=== PATIENT | male | born 1960 | race Caucasian/White ===

== ENCOUNTER 2016-10-12 11:23 | Emergency (ER) | payer SELFPAY ==
[2016-10-12 11:29] VITALS: BP 119/72
--- NOTE | 2016-10-12 12:26 | UC ---
homar Pizano Timothy, scribed for Amelia Wise MD on 10/12/16 at 1209 . Respiratory Complaint HPI - HPI Summary HPI Summary: Des Nava is a 55 yo male presenting to [facility] with non-productive cough for the past two weeks, concerned that CPAP may have caused his Sx. He states this is the second time in 6 months that he has had this cough. Pt is worried he has not been cleaning his CPAP correctly. He states he was feverish last week but none since. None productive cough. Pt denies EGAN, sinus congestion, ear pain, pnd. Pt states was treated for sarcoid in his lung and right eye several years ago. STates at this time was treated with steroids. Pt is monitored at [facility] for this disease process. He denies any traveling, infectious exposure, rhinorrhea. pt also with recent wound left lower abd - pt ? tick or insect bite. Been present x 2 weeks. His MHx includes diplopia, heart murmur, bicuspid valve disease, vertebral arterial disease, cerebral cyst, sarcoidosis, cholecystectomy, ADHD, bipolar disorder, tobacco use. - History of Current Complaint Chief Complaint: UCRespiratory Stated Complaint: COUGH Time Seen by Provider: 10/12/16 12:10 Hx Obtained From: Patient Onset/Duration: Gradual Onset, Lasting Weeks, Still Present Timing: Constant Severity Initially: Moderate Severity Currently: Moderate Character: Cough: Nonproductive Associated Signs And Symptoms: Positive: Fever. Negative: Nasal Congestion, Sinus Discomfort - Allergies/Home Medications Allergies/Adverse Reactions: Allergies Allergy/AdvReac Type Severity Reaction Status Date / Time No Known Allergies Allergy Verified 10/12/16 11:29 PMH/Surg Hx/FS Hx/Imm Hx - Additional Past Medical History Additional PMH: sarcoidosis Previously Healthy: Yes Cardiovascular History: Other Other Cardiovascular History: diplopia, heart murmur, bicuspid valve disease, vertebral arterial disease Neurological History: Other Other Neurological History: cerebral cyst Psychological History: Bipolar Disorder, Other Other Psychological History: ADHD - Surgical History Surgical History: Yes Surgery Procedure, Year, and Place: 1989- cyst removed parotid gland. 2004- vasectomy. 2004- cholecystectomy. wisdom teeth removal, date unknown - Family History Known Family History: Positive: Cardiac Disease, Diabetes Negative: Hypertension, Respiratory Disease - Social History Occupation: Employed Full-time - real estate agency principal Alcohol Use: None Substance Use Type: None Smoking Status (MU): Former Smoker Length of Time of Smoking/Using Tobacco: 13 years When Did the Patient Quit Smoking/Using Tobacco: 28 years ago Household Exposure Type: Cigarettes - Immunization History Most Recent Influenza Vaccination: 2014/2015 Review of Systems Constitutional: Fever Skin: Other - wound to left lower abd - ?insect bite Eyes: Negative ENT: Negative Respiratory: Cough Cardiovascular: Negative Gastrointestinal: Negative Genitourinary: Negative Motor: Negative Neurovascular: Negative Musculoskeletal: Negative Neurological: Negative Psychological: Negative All Other Systems Reviewed And Are Negative: Yes Physical Exam Triage Information Reviewed: Yes Vital Signs: Initial Vital Signs Temp 98.8 F 10/12/16 11:25 Pulse 57 10/12/16 11:25 Resp 16 10/12/16 11:25 BP 119/72 10/12/16 11:25 Pulse Ox 97 10/12/16 11:25 Vital Signs Reviewed: Yes Eye Exam: Normal Eyes: Positive: Conjunctiva Clear, Conjunctiva Inflamed ENT Exam: Normal ENT: Positive: Normal ENT inspection, Hearing grossly normal, Nasal drainage, TMs normal Neck exam: Normal Neck: Positive: Supple, Nontender, No Lymphadenopathy Respiratory Exam: Normal Respiratory: Positive: Chest non-tender, No respiratory distress, No accessory muscle use, Other: - few, scattered wheeze mild, intermittent cough Cardiovascular Exam: Normal Cardiovascular: Positive: RRR, No Murmur, Pulses Normal Abdominal Exam: Normal Abdomen Description: Positive: Nontender, No Organomegaly, Soft Bowel Sounds: Positive: Present Musculoskeletal Exam: Normal Neurological Exam: Normal Neurological: Positive: Alert Psychological Exam: Normal Psychological: Positive: Normal Response To Family Skin: Positive: Other - left upper suprapubic area - pt with small scabbed area - appears as inflammed follicle. No drainage, non tender. No fluctance UC Diagnostic Evaluation - Laboratory O2 Sat by Pulse Oximetry: 97 Re-Evaluation - Re-Evaluation First Eval Re-Evaluation Time: 12:36 Change: Unchanged Comment: Pt states he declines CXR due to lack of insurance. Pt was advised of the risks of the decision to forego CXR. Respiratory Course/Dx - Course Course Of Treatment: Des Nava is a 55 yo male presenting to [facility] with nonproductive cough for the past few weeks. Pt concerned related to cpap. Pt denies sick contact. Pt reports has sarcoidosis. REcommend CXR -similar sx in 6 months, h/o sarcoid- pt does not have insurance and declines CXR. Will give abx. pt has MDI. f./u with pcp. secretion hygeine discussed. PT comfortable and in agreement with plan - Differential Dx/Diagnosis Provider Diagnoses: cough Discharge - Discharge Plan Condition: Stable Disposition: HOME Prescriptions: Albuterol HFA INHALER* [Ventolin HFA Inhaler*] 1 puff INH Q4H PRN #1 mdi PRN Reason: Wheezing Azithromycin TAB* [Zithromax TAB (Z-VENUS) 250 mg #6 tabs] 2 tab PO .TODAY, THEN 1 DAILY #1 venus Patient Education Materials: Acute Cough (ED) Referrals: Arti Phipps MD [Primary Care Provider] - 2 Days Additional Instructions: Stay well hydrated. Drink plenty of non-alcoholic, non-caffinated beverages Take antibiotics as prescribed until gone After you have been on antibiotics for 2 days, change your toothbrush and change your pillowcase Call your doctor to schedule a follow-up appointment. call your doctor or return with questions or concerns Please follow up with your primary care physician reagrding your visit to urgent care today. Return to urgent care or the emergency department with any new symptoms or questions or concerns. The documentation as recorded by the homar ewing Timothy accurately reflects the service I personally performed and the decisions made by me, Amelia Wise MD.
== END 2016-10-12 12:55 | disposition home or self-care (01) ==
LOC: UCEAST 11:23
DX: R05 Cough (principal); D86.9 Sarcoidosis, unspecified; Z87.891 Personal history of nicotine dependence
CPT/HCPCS: 99212; G0463

== ENCOUNTER 2017-09-21 17:14 | Emergency (ER) | payer BC ==
[2017-09-21 18:01] VITALS: BP 136/81
--- NOTE | 2017-09-21 19:13 | UC ---
Back Pain HPI - HPI Summary HPI Summary: 56 y/o male presents to the urgent care accompany c/o RT side posterior rib pain and lower back pain s/p slipping and falling down 4 steps and landing on his Rt side of back around 1630pm today. Pt reports pain is 7/10, sharp and exacerbated w/ movement and deep breathing. He has a bruise in his RT posterior back. Pt denies saddle anesthesia, urinary or fecal incontinence, numbness or tingling sensation over the lower extremities. Pt states Hx of T7, T8 and T9 fracture in 1994 s/p fall. Pt has not taking anything to alleviate symptoms. Pt denies SOB, chest pain, abdominal pain, urinary symptoms, N/V/D. - History of Current Complaint Chief Complaint: UCBackPain Stated Complaint: BACK INJURY Time Seen by Provider: 09/21/17 19:11 Hx Obtained From: Patient Onset/Duration: Sudden Onset, Lasting Hours - 4hrs AGO Timing: Constant Severity Initially: Moderate Severity Currently: Moderate Pain Intensity: 8 Pain Scale Used: 0-10 Numeric Back Pain: Is Discrete @ - Rt lateral side of posterior mid back and lower back pain back Character: Sharp Aggravating Factor(s): Movement, Lifting, Bending, Other - deep breathing Alleviating Factor(s): Rest, Cold Associated Signs And Symptoms: Positive: Swelling, Redness, Bruising. Negative : Fever, Weakness, Numbness, Tingling, Abdominal Pain, Flank Pain, Bladder Incontinence, Bowel Incontinence, Weight Loss, Pain with Weight Bearing - Risk Factors AAA Risk Factors: Negative TAD Risk Factors: Negative Cauda Equina Risk Factors: Negative Epidural Abscess Risk Factors: Negative - Allergies/Home Medications Allergies/Adverse Reactions: Allergies Allergy/AdvReac Type Severity Reaction Status Date / Time No Known Allergies Allergy Verified 09/21/17 18:01 PMH/Surg Hx/FS Hx/Imm Hx Previously Healthy: Yes Endocrine History: Diabetes - Pre-DM, Dyslipidemia Psychological History: Depression, Bipolar Disorder - Surgical History Surgical History: Yes Surgery Procedure, Year, and Place: 1989- cyst removed parotid gland. 2004- vasectomy. 2004- cholecystectomy. wisdom teeth removal, date unknown - Family History Known Family History: Positive: Cardiac Disease, Hypertension, Diabetes Negative: Respiratory Disease - Social History Occupation: Employed Full-time Lives: With Family Alcohol Use: None Substance Use Type: None Smoking Status (MU): Former Smoker Length of Time of Smoking/Using Tobacco: 13 years When Did the Patient Quit Smoking/Using Tobacco: 28 years ago Household Exposure Type: Cigarettes - Immunization History Most Recent Influenza Vaccination: 2014/2015 Review of Systems Constitutional: Negative Skin: Bruising - RT posterio side of mid back w/ a big bruise s/p fall Eyes: Negative ENT: Negative Respiratory: Negative Cardiovascular: Negative Gastrointestinal: Negative Genitourinary: Negative Motor: Negative Neurovascular: Negative Musculoskeletal: Decreased ROM - lower back, Other: - lower back pain s/p fall Neurological: Negative Psychological: Negative Is Patient Immunocompromised?: No All Other Systems Reviewed And Are Negative: Yes Physical Exam - Summary Physical Exam Summary: Vital Signs Reviewed: Yes Appearance: Well-Appearing, Well-Nourished, obese male sitting in the examining table w/o any apparent distress. Eyes: Positive: Conjunctiva Clear - PERRLA, EOMI. ENT: Positive: Normal ENT inspection, Hearing grossly normal, Pharynx normal, TMs normal, Uvula midline Neck: Positive: Supple, Nontender, No Lymphadenopathy Respiratory: Positive: Chest non-tender, Lungs clear, Normal breath sounds, No respiratory distress Cardiovascular: Positive: RRR, No Murmur, Pulses Normal, Brisk Capillary Refill Abdomen Description: Positive: Nontender, No Organomegaly, Soft. Negative: CVA Tenderness (R), CVA Tenderness (L) Bowel Sounds: Positive: Present Musculoskeletal: Positive: Strength Intact, BACK: Patient walked into the urgent care room with symmetric ambulation, No signs of limping, antalgic, able to bear weight. Posterior RT side of mid back w/ a hematoma about 18cm x 8cm in size, mild tenderness to palpation and mild swelling. No masses palpated. Point tenderness at the level of postrior Rt side ribs 9-12, No CVAT, no flank ecchymosis . No sacroiliac notch tenderness, Point tenderness at L5-S1 on palpation No saddle anesthesia.ROM: limited due to pain, Straight Leg Raise: unable to perform due to pain. Patellar reflexes: brisk, symmetric Muscle strength lower extremities. Dorsiflexion/ plantar flexion of ankles. Heel/ toe walk. Lower extremities: Femoral, popliteal, posterior tibial, and dorsalis pedis pulses WNL. Pt refuse rectal exam Neurological: Positive: Alert, Muscle Tone Normal Psychological Exam: Normal Skin Exam: Normal Triage Information Reviewed: Yes Vital Signs: Initial Vital Signs Temp 98.0 F 09/21/17 17:58 Pulse 70 09/21/17 17:58 Resp 18 09/21/17 17:58 BP 136/81 09/21/17 17:58 Pulse Ox 98 09/21/17 17:58 Back Pain Course/Dx - Course Course Of Treatment: 56 y/o male presents to the urgent care accompany c/o RT side posterior rib pain and lower back pain s/p slipping and falling down 4 steps and landing on his Rt side of back around 1630pm today. Pt reports pain is 7/10, sharp and exacerbated w/ movement and deep breathing. He has a bruise in his RT posterior back. Pt denies saddle anesthesia, urinary or fecal incontinence, numbness or tingling sensation over the lower extremities. Pt states Hx of T7, T8 and T9 fracture in 1994 s/p fall. Pt has not taking anything to alleviate symptoms. Pt denies SOB, chest pain, abdominal pain, urinary symptoms, N/V/D. Hx obtained. - Differential Dx/Diagnosis Differential Diagnosis/HQI/PQRI: Fracture, Renal Colic, Strain, Sprain Provider Diagnoses: 1- RT side posterior rib pain s/p fall. 2-Acute lower back pain s/p fall Discharge - Discharge Plan Condition: Stable Disposition: HOME Prescriptions: Ibuprofen TAB* [Motrin TAB* 800 MG] 800 mg PO Q6H PRN #30 tab PRN Reason: Pain Patient Education Materials: How to Use an Incentive Spirometer (ED), Degenerative Disc Disease (ED), Hematoma (ED), Atelectasis (ED) Referrals: Arti Phipps MD [Primary Care Provider] - 2 Days Additional Instructions: 1- Please take Ibuprofen PO as directed after meals for pain. Apply cold compresses over hematoma to alleviate pain and swelling 2- Use the incentive Spirometry to improve lung function and alleviate atelectasis. 3- Wear a back support. Avoid strenuous exercise of heavy lifting. 4- Please follow up with your PCP in 2-3 days if not improvement of symptoms, for further management. 5- If you develop severe SOB and severe pain please go immediately ti the ER for further management - Billing Disposition and Condition Condition: STABLE Disposition: Home
[2017-09-21] MEDS ORDERED: Ibuprofen TAB* 400 MG PO ONE (19:26)
--- NOTE | 2017-09-21 20:01 | RAD ---
INDICATION: Fall, low back pain. COMPARISON: There are no prior studies available for comparison. TECHNIQUE: 5 views of the lumbar spine were obtained including lateral, oblique, AP and a coned-down lateral view of the lumbar sacral junction. FINDINGS: The vertebra are in normal alignment. There is suggestion of spondylolysis at the L5 level seen on the lateral image. No other fracture is seen. There is mild degenerative disc disease at the L4-L5 level. IMPRESSION: 1. MILD DEGENERATIVE DISC DISEASE AT THE L4-L5 LEVEL. 2. POSSIBLE SPONDYLOLYSIS AT THE L5 LEVEL.
--- NOTE | 2017-09-21 20:03 | RAD ---
INDICATION: Right rib injury. COMPARISON: Comparison is made with a prior chest x-ray study from December 09, 2006. TECHNIQUE: 4 views of the right ribs and dual-energy PA views of the chest were obtained. FINDINGS: No fracture or significant focal osseous abnormality is seen. The heart is within normal limits in size. The lungs are underinflated. There are linear densities at both lung bases most consistent with atelectasis. The lungs are otherwise clear. No pleural effusion or pneumothorax is seen. IMPRESSION: NO EVIDENCE FOR FRACTURE.
== END 2017-09-21 20:52 | disposition home or self-care (01) ==
LOC: UCEAST 17:14
DX: R07.81 Pleurodynia (principal); M54.2 Cervicalgia; Z87.891 Personal history of nicotine dependence; F31.9 Bipolar disorder, unspecified; W01.0XXA Fall on same level from slipping, tripping and stumbling without subsequent striking against object, initial encounter
CPT/HCPCS: 72110; 99212; A9270-GY; G0463

== ENCOUNTER 2017-11-05 15:52 | Emergency (ER) | payer BC ==
--- NOTE | 2017-11-05 15:56 | UC ---
Ear Complaint HPI - HPI Summary HPI Summary: 56 yo female presents with left ear pain for the last 5 days. Denies fever, chills, sinus symptoms, headache, dizziness, cough, sore throat. - History of Current Complaint Stated Complaint: L EAR ACHE Time Seen by Provider: 11/05/17 15:55 Hx Obtained From: Patient Onset/Duration: Gradual Onset Severity Initially: Mild Severity Currently: Mild Pain Intensity: 2 Pain Scale Used: 0-10 Numeric - Allergies/Home Medications Allergies/Adverse Reactions: Allergies Allergy/AdvReac Type Severity Reaction Status Date / Time No Known Allergies Allergy Verified 11/05/17 16:00 PMH/Surg Hx/FS Hx/Imm Hx - Additional Past Medical History Additional PMH: ADHD Psychological History: Bipolar Disorder - Surgical History Surgical History: Yes Surgery Procedure, Year, and Place: 1989- cyst removed parotid gland. 2004- vasectomy. 2004- cholecystectomy. wisdom teeth removal, date unknown - Family History Known Family History: Positive: None, Cardiac Disease, Hypertension, Diabetes Negative: Respiratory Disease - Social History Occupation: Employed Full-time Lives: With Family Alcohol Use: None Substance Use Type: None Smoking Status (MU): Former Smoker Length of Time of Smoking/Using Tobacco: 13 years When Did the Patient Quit Smoking/Using Tobacco: 28 years ago Household Exposure Type: Cigarettes - Immunization History Most Recent Influenza Vaccination: 2014/2015 Review of Systems Constitutional: Negative Skin: Negative Eyes: Negative ENT: Ear Ache Respiratory: Negative Cardiovascular: Negative Gastrointestinal: Negative Neurovascular: Negative Neurological: Negative Psychological: Negative All Other Systems Reviewed And Are Negative: Yes Physical Exam - Summary Physical Exam Summary: GENERAL: NAD. WDWN. No pain distress. SKIN: No rashes, sores, lesions, or open wounds. HEENT: Head: AT/NC Eyes: EOM intact. Conjunctiva clear without inflammation or discharge. Ears: Hearing grossly normal. LEFT EAR: TM with mild erythema and bulging. No canal edema or drainage. Nose: Nasal mucosa pink and moist. NTTP maxillary and frontal sinus. Throat: Posterior oropharynx without exudates, erythema, or tonsillar enlargement. Uvula midline. NECK: Supple. Nontender. No lymphadenopathy. CHEST: CTAB. No r/r/w. No accessory muscle use. Breathing comfortably and in no distress. CV: RRR. Without m/r/g. Pulses intact. Brisk cap refill. NEURO: Alert. CN II-XII grossly intact. PSYCH: Age appropriate behavior. Triage Information Reviewed: Yes Vital Signs: Vital Signs: Temp Pulse Resp BP Pulse Ox 97.6 F 57 16 115/57 96 11/05/17 15:56 11/05/17 15:56 11/05/17 15:56 11/05/17 15:56 11/05/17 15:56 Vital Signs Reviewed: Yes Ear Complaint Course/Dx - Course Course Of Treatment: left otitis media - Differential Dx/Diagnosis Provider Diagnoses: Left otitis media Discharge - Sign-Out/Discharge Documenting (check all that apply): Patient Departure - Discharge Plan Condition: Stable Disposition: HOME Prescriptions: Amoxicillin PO (*) [Amoxicillin 500 MG CAP*] 500 mg PO Q12H #14 cap Patient Education Materials: Ear Infection (ED) Referrals: Arti Phipps MD [Primary Care Provider] - Additional Instructions: If you develop a fever, shortness of breath, chest pain, new or worsening symptoms - please call your PCP or go to the ED. - Billing Disposition and Condition Condition: STABLE Disposition: Home
[2017-11-05 16:00] VITALS: BP 115/57
== END 2017-11-05 16:11 | disposition home or self-care (01) ==
LOC: UCEAST 15:52
DX: H66.92 Otitis media, unspecified, left ear (principal); Z87.891 Personal history of nicotine dependence
CPT/HCPCS: 99212; G0463

== ENCOUNTER 2017-11-15 09:19 | Emergency (ER) | payer BC ==
[2017-11-15 09:27] VITALS: BP 95/57
--- NOTE | 2017-11-15 09:55 | UC ---
Ear Complaint HPI - HPI Summary HPI Summary: 56 yo male presents with continued left ear pain. I saw the pt on 11/05/17 and he was diagnosed with otitis media on the left. He said that he finished the amoxicillin and felt good for a day or two, but his ear pain returned. He has not been taking anything OTC such as flonase or antihistamines. Denies fever, chills, sore throat, sinus symptoms, or cough. - History of Current Complaint Chief Complaint: UCEar Stated Complaint: EAR COMPLAINT Time Seen by Provider: 11/15/17 09:55 Hx Obtained From: Patient Severity Initially: Moderate Severity Currently: Mild Pain Intensity: 3 Pain Scale Used: 0-10 Numeric - Allergies/Home Medications Allergies/Adverse Reactions: Allergies Allergy/AdvReac Type Severity Reaction Status Date / Time No Known Allergies Allergy Verified 11/15/17 09:27 PMH/Surg Hx/FS Hx/Imm Hx Psychological History: Anxiety, Depression, Bipolar Disorder - Surgical History Surgical History: Yes Surgery Procedure, Year, and Place: 1989- cyst removed parotid gland. 2004- vasectomy. 2004- cholecystectomy. wisdom teeth removal, date unknown - Family History Known Family History: Positive: None, Cardiac Disease, Hypertension, Diabetes Negative: Respiratory Disease - Social History Occupation: Employed Full-time Lives: With Family Alcohol Use: None Substance Use Type: None Smoking Status (MU): Former Smoker Length of Time of Smoking/Using Tobacco: 13 years When Did the Patient Quit Smoking/Using Tobacco: 28 years ago Household Exposure Type: Cigarettes - Immunization History Most Recent Influenza Vaccination: 2014/2015 Review of Systems Constitutional: Negative Skin: Negative Eyes: Negative ENT: Ear Ache Respiratory: Negative Cardiovascular: Negative Gastrointestinal: Negative Neurovascular: Negative Neurological: Negative Psychological: Negative All Other Systems Reviewed And Are Negative: Yes Physical Exam - Summary Physical Exam Summary: GENERAL: NAD. WDWN. No pain distress. SKIN: No rashes, sores, lesions, or open wounds. HEENT: Head: AT/NC Eyes: EOM intact. Conjunctiva clear without inflammation or discharge. Ears: Hearing grossly normal. LEFT TM with mild erythema and bulging. No canal edema or drainage. Nose: Nasal mucosa pink and moist. NTTP maxillary and frontal sinus. Throat: Posterior oropharynx without exudates, erythema, or tonsillar enlargement. Uvula midline. NECK: Supple. Nontender. No lymphadenopathy. CHEST: No accessory muscle use. Breathing comfortably and in no distress. CV: Pulses intact. Brisk cap refill. NEURO: Alert. CN II-XII grossly intact. PSYCH: Age appropriate behavior. Triage Information Reviewed: Yes Vital Signs: Initial Vital Signs Temp 97 F 11/15/17 09:24 Pulse 62 11/15/17 09:24 Resp 16 11/15/17 09:24 BP 95/57 11/15/17 09:24 Pulse Ox 99 11/15/17 09:24 Vital Signs Reviewed: Yes Ear Complaint Course/Dx - Course Course Of Treatment: Left otitis media - will rx for Augmentin given recent failure of amoxicillin and have him f/u with his PCP if symptoms persist - Differential Dx/Diagnosis Provider Diagnoses: Left otitis media Discharge - Sign-Out/Discharge Documenting (check all that apply): Patient Departure - Discharge Plan Condition: Stable Disposition: HOME Prescriptions: Amoxicillin/Clavulanate TAB* [Augmentin TAB 875*] 875 mg PO BID #20 tab Patient Education Materials: Ear Infection (ED) Referrals: Arti Phipps MD [Primary Care Provider] - Additional Instructions: If you develop a fever, shortness of breath, chest pain, new or worsening symptoms - please call your PCP or go to the ED. - Billing Disposition and Condition Condition: STABLE Disposition: Home
== END 2017-11-15 10:29 | disposition home or self-care (01) ==
LOC: UCEAST 09:19
DX: H66.92 Otitis media, unspecified, left ear (principal); Z87.891 Personal history of nicotine dependence
CPT/HCPCS: 99212; G0463

== ENCOUNTER 2018-07-08 21:48 | Emergency (ER) | payer BC ==
--- NOTE | 2018-07-08 22:54 | ED ---
Respiratory - HPI Summary HPI Summary: Patient complains of persistent cough, runny nose and scratchy throat 1 month. Patient concerned as he states he has noticed mold in his bedroom which he is having repaired tomorrow. Denies fever, EGAN, neck stiffness, ear pain, CP, SOB, N/V/V abdominal pain, change in urine, change in BM. Medical history sarcoidosis, sleep apnea. Patient states he has not been using his sleep apnea machine for couple weeks. - History of Current Complaint Chief Complaint: EDThroatPain Stated Complaint: I THINK I HAVE A MOLD INFECTION PER PT Time Seen by Provider: 07/08/18 22:17 Hx Obtained From: Patient Onset/Duration: Gradual Onset, Lasting Weeks Timing: Constant Initial Severity: Mild Current Severity: Mild Pain Intensity: 2 Character: Cough (Nonproductive) Sputum Amount: None Aggravating Factor(s): Nothing Alleviating Factor(s): Nothing Associated Signs and Symptoms: Negative - Allergy/Home Medications Allergies/Adverse Reactions: Allergies Allergy/AdvReac Type Severity Reaction Status Date / Time No Known Allergies Allergy Verified 07/08/18 22:02 Home Medications: Home Medications buPROPion HCl [Bupropion HCl Xl] 150 mg PO DAILY 07/08/18 [History Confirmed ] PMH/Surg Hx/FS Hx/Imm Hx Endocrine/Hematology History: Denies: Hx Diabetes, Hx Thyroid Disease Cardiovascular History: Reports: Hx Valvular Heart Disease - bicuspid, Other Cardiovascular Problems/Disorders - 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 Denies: Hx Hypertension Respiratory History: Reports: Other Respiratory Problems/Disorders - SARCOIDOSIS Denies: Hx Asthma, Hx Chronic Obstructive Pulmonary Disease (COPD) GI History: Reports: Hx Gall Bladder Disease - s/p cholecystectomy Denies: Hx Ulcer Sensory History: Reports: Hx Vision Problem - diplopia 05/2006 Opthamlomology History: Reports: Hx Vision Problem - diplopia 05/2006 Neurological History: Reports: Other Neuro Impairments/Disorders - cerebral cyst Psychiatric History: Reports: Hx Attention Deficit Hyperactivity Disorder, Hx Community Mental Health Tx, Hx Bipolar Disorder - Surgical History Surgery Procedure, Year, and Place: 1989- cyst removed parotid gland. 2004- vasectomy. 2004- cholecystectomy. wisdom teeth removal, date unknown Infectious Disease History: No Infectious Disease History: Denies: Hx Clostridium Difficile, Hx Hepatitis, Hx Human Immunodeficiency Virus (HIV), Hx of Known/Suspected MRSA, Hx Shingles, Hx Tuberculosis, Hx Known/ Suspected VRE, Hx Known/Suspected VRSA, History Other Infectious Disease, Traveled Outside the [place] in Last 30 Days - Family History Known Family History: Positive: None, Cardiac Disease, Hypertension, Diabetes Negative: Respiratory Disease - Social History Alcohol Use: None Substance Use Type: Reports: None Hx Tobacco Use: Yes Smoking Status (MU): Former Smoker Length of Time of Smoking/Using Tobacco: 13 years Review of Systems Constitutional: Negative Eyes: Negative Positive: Sore Throat Cardiovascular: Negative Positive: Cough Gastrointestinal: Negative Genitourinary: Negative Musculoskeletal: Negative Skin: Negative Neurological: Negative Psychological: Normal All Other Systems Reviewed And Are Negative: Yes Physical Exam - Summary Physical Exam Summary: ENT exam unremarkable. Lung sounds clear to auscultation bilaterally. Triage Information Reviewed: Yes Vital Signs On Initial Exam: Initial Vitals Temp Pulse Resp BP Pulse Ox 98.1 F 77 16 134/78 96 07/08/18 21:58 07/08/18 21:58 07/08/18 21:58 07/08/18 21:58 07/08/18 21:58 Vital Signs Reviewed: Yes Appearance: Positive: Well-Appearing Skin: Positive: Warm Head/Face: Positive: Normal Head/Face Inspection Eyes: Positive: Normal ENT: Positive: Normal ENT inspection Neck: Positive: Supple Respiratory/Lung Sounds: Positive: Clear to Auscultation Cardiovascular: Positive: Normal Abdomen Description: Positive: Nontender Musculoskeletal: Positive: Normal Neurological: Positive: Normal Psychiatric: Positive: Normal AVPU Assessment: Alert - Darrion Coma Scale Best Eye Response: 4 - Spontaneous Best Motor Response: 6 - Obeys Commands Best Verbal Response: 5 - Oriented Coma Scale Total: 15 Diagnostics - Vital Signs Vital Signs Temp Pulse Resp BP Pulse Ox 07/08/18 21:58 98.1 F 77 16 134/78 96 - Laboratory Lab Statement: Any lab studies that have been ordered have been reviewed, and results considered in the medical decision making process. Disposition - Course Course Of Treatment: Patient complains of persistent cough, runny nose and scratchy throat 1 month. Patient concerned as he states he has noticed mold in his bedroom which he is having repaired tomorrow. Denies fever, EGAN, neck stiffness, ear pain, CP, SOB, N/V/V abdominal pain, change in urine, change in BM. Medical history sarcoidosis, sleep apnea. Patient states he has not been using his sleep apnea machine for couple weeks. Physical exam:ENT exam unremarkable. Lung sounds clear to auscultation bilaterally. Vital signs within normal limits. Diagnosis viral syndrome. - Diagnoses Provider Diagnoses: Cough, Dry throat Discharge - Sign-Out/Discharge Documenting (check all that apply): Patient Departure Patient Received Moderate/Deep Sedation with Procedure: No - Discharge Plan Condition: Stable Disposition: HOME Prescriptions: Benzonatate CAP* [Tessalon 100 MG CAP*] 200 mg PO TID 6 Days #40 cap Referrals: Arti Phipps MD [Primary Care Provider] - Additional Instructions: Try a vaporizer near the bed while you sleep, or crack window to allow more moisture into the house. Follow-up with primary care. Return to the ED for any new or worsening symptoms. - Billing Disposition and Condition Condition: STABLE Disposition: Home
[2018-07-08 23:04] VITALS: BP 149/69
[2018-07-08] MEDS: Benzonatate CAP* 100 MG PO ONE (23:04)
== END 2018-07-08 23:02 | disposition home or self-care (01) ==
LOC: ED 21:48
DX: R05 Cough (principal); J39.2 Other diseases of pharynx; Z87.891 Personal history of nicotine dependence
CPT/HCPCS: 99282; A9270-GY

== ENCOUNTER 2022-01-09 21:07 | Observation (INO) ==
[2022-01-09] MEDS ORDERED: Prochlorperazine 5 mg/ml 2 ml VIAL (10 mg) IV ONE (22:03)
[2022-01-09] MEDS ORDERED: Prochlorperazine 5 mg/ml 2 ml VIAL (10 mg) ONE (22:04)
[2022-01-09] MEDS ORDERED: NS 0.9% 1000 ml BAG 1,000 ML IV ONE (22:07)
[2022-01-09 22:19] LABS: ABS Basophils 0.1 10^3/ul (0-0.2); ABS Eosinophils 0.1 10^3/ul (0-0.6); ABS Lymphocytes 2.1 10^3/ul (1.0-4.8); ABS Monocytes 0.6 10^3/ul (0-0.8); ABS Neutrophils 7.3 10^3/ul (1.5-7.7); Eosinophil % 1.1 %; Hematocrit 40 % (42-52); Hemoglobin 13.6 g/dL (14.0-18.0); Lymphocyte % 20.7 %; Mean Corpuscular HGB Conc 34 g/dL (31-36); Mean Corpuscular Hemoglobin 31 pg (27-31); Mean Corpuscular Volume 89 fL (80-94); Mean Platelet Volume 9.2 fL (7.4-10.4); Platelet Count 233 10^3/uL (150-450); Red Blood Count 4.46 10^6 /uL (4.18-5.48); Red Cell Distribution Width 13 % (10-15); White Blood Count 10.1 10^3/uL (3.5-10.8)
[2022-01-09 22:28] LABS: Activated Partial Thrombo Time 27.1 seconds (26.0-38.0); INR 0.95 (0.89-1.11)
[2022-01-09 22:38] LABS: ALT 54 U/L (7-52); Albumin 4.6 g/dL (3.2-5.2); Albumin/Globulin Ratio 1.6 (1-3); Alkaline Phosphatase 72 U/L (35-149); Blood Urea Nitrogen 23 mg/dL (6-24); CO2 Carbon Dioxide 26 mmol/L (22-32); Calcium 9.7 mg/dL (8.6-10.3); Chloride 101 mmol/L (101-111); Cholesterol 236 mg/dL; Globulin 2.8 g/dL (2-4); Glucose 193 mg/dL (70-100); HDL Cholesterol 41.4 mg/dL; LDL Cholesterol 148 mg/dL; Sodium 139 mmol/L (135-145); Total Protein 7.4 g/dL (6.4-8.9); Triglycerides 233 mg/dL; eGFR CKD-EPI 69.5 (>60)
[2022-01-09 22:40] LABS: High Sens Troponin Baseline 4 pg/mL (<20)
[2022-01-09] MEDS ORDERED: Iohexol 350 (CONTRAST) 500 ML MDV IV ONE (22:47)
[2022-01-09 22:55] LABS: Anion Gap 12 mmol/L (2-11)
[2022-01-10 00:04] LABS: Potassium Redraw 3.7 mmol/L (3.5-5.0)
[2022-01-10 00:06] LABS: High Sensitivity Troponin 1 Hr < 3 pg/mL (<20); Urine Bacteria Absent (Absent); Urine Red Blood Cell Trace(0-2/hpf) (Absent); Urine White Blood Cell Trace(0-5/hpf) (Absent)
[2022-01-10] MEDS ORDERED: Ondansetron 4 mg VIAL 2 MG/ML 2 ml VIAL IV PRN (00:14)
[2022-01-10 01:05] LABS: Urine Appearance Clear; Urine Bilirubin Negative (Negative); Urine Blood Negative (Negative); Urine Color Yellow; Urine Glucose Negative (Negative); Urine Ketones Negative (Negative); Urine Nitrite Negative (Negative); Urine Protein Negative (Negative); Urine Specific Gravity 1.044 (1.002-1.030); Urine Urobilinogen Negative (Negative)
[2022-01-10 07:21] LABS: HDL Cholesterol 41.2 mg/dL
[2022-01-10] MEDS: Enoxaparin 40 MG/0.4 ML SYR SUBCUT SCH (10:35)
[2022-01-11 07:11] LABS: ABS Basophils 0.1 10^3/ul (0-0.2); ABS Eosinophils 0.2 10^3/ul (0-0.6); ABS Lymphocytes 2.9 10^3/ul (1.0-4.8); ABS Monocytes 0.5 10^3/ul (0-0.8); Eosinophil % 2.7 %; Hematocrit 41 % (42-52); Lymphocyte % 37.5 %; Mean Corpuscular HGB Conc 34 g/dL (31-36); Mean Corpuscular Hemoglobin 31 pg (27-31); Mean Corpuscular Volume 90 fL (80-94); Mean Platelet Volume 9.2 fL (7.4-10.4); Nucleated Red Blood Cells % 0.1; Platelet Count 219 10^3/uL (150-450); Red Blood Count 4.51 10^6 /uL (4.18-5.48); Red Cell Distribution Width 13 % (10-15); White Blood Count 7.7 10^3/uL (3.5-10.8)
[2022-01-11 08:07] LABS: Calcium 9.5 mg/dL (8.6-10.3); Magnesium 2.1 mg/dL (1.9-2.7); Potassium 4.2 mmol/L (3.5-5.0); eGFR CKD-EPI 70.9 (>60)
[2022-01-11] MEDS: Enoxaparin 40 MG/0.4 ML SYR SUBCUT SCH (10:43)
[2022-01-11 10:49] VITALS: BP 125/81
== END 2022-01-11 16:45 | disposition home or self-care (01) ==
LOC: EDHOLD 21:07 → ED 21:07 → SUATTDRO 23:50 → MEDTELE 01-10 02:49
PROVIDERS: ADMIT Student in an Organized Health Care Education/Training Program; ATTEND Hospitalist